=== PATIENT | female | born 1995 ===

== ENCOUNTER 2017-10-24 14:55 | Inpatient (IN) | payer SELFPAY ==
[2017-10-24] MEDS ORDERED: OLANZapine 5 MG TAB PO ONE (14:59)
--- NOTE | 2017-10-24 15:01 | EDPHY ---
H & P Source: Patient, Police, EMS Time Seen by Provider: 10/24/17 14:59 HPI/ROS: HPI CHIEF COMPLAINT: Acute psychosis, possible drug intoxication HISTORY OF PRESENT ILLNESS: This patient 22-year-old female she presents emergency room by EMS with police she is on M1 hold placed by Haleigh ELIAS, she presents emergency room psychotic. She has pressured speech and is rambling nonsensical words. Unable to obtain history from her. EMS reports that she may have done MDMA and LSD today. Possibly mushrooms. I am unable to obtain any history from her as she is floridly psychotic. Past Medical History: Unknown medical history Past Surgical History: Unknown surgical history Social History: Possible intoxication Family History: Unknown ROS REVIEW OF SYSTEMS: Unknown Exam Constitutional triage nursing summary reviewed, vital signs reviewed, awake/ alert. Eyes normal conjunctivae and sclera, EOMI, PERRLA. HENT normal inspection, atraumatic, moist mucus membranes, no epistaxis, neck supple/ no meningismus, no raccoon eyes. Respiratory clear to auscultation bilaterally, normal breath sounds, no respiratory distress, no wheezing. Cardiovascular rate normal, regular rhythm, no murmur, no edema, distal pulses normal. Gastrointestinal soft, non-tender, no rebound, no guarding, normal bowel sounds, no distension, no pulsatile mass. Genitourinary no CVA tenderness. Musculoskeletal no midline vertebral tenderness, full range of motion, no calf swelling, no tenderness of extremities, no meningismus, good pulses, neurovascularly intact. Skin pink, warm, & dry, no rash, skin atraumatic. Neurologic floridly psychotic, nonsensical pressured speech with nonsensical verbiage. Psychiatric acutely psychotic Heme/Lymph/Immune no lymphadenopathy. Differential Diagnosis: Includes but is not limited to in a particular order acute psychosis, acute drug intoxication,, underlying mental illness. Medical Decision Making: Plan for this patient 10 mg p.o. Zyprexa, IV establishment blood draw, drug screen, electrolytes and re-evaluate. Re-evaluation: CT scan head without contrast called to me by Dr. Blackman negative for acute bleed or abnormality. 2300: Patient here on M1 hold. Signed over to Dr. Sotelo, Reinier porsche ( Deshaun Bedoya) Constitutional: Initial Vital Signs Temperature (C) 36.8 C 10/24/17 15:27 Heart Rate 86 06/20/18 15:27 Respiratory Rate 15 10/24/17 15:27 Blood Pressure 150/90 H 10/24/17 15:27 O2 Sat (%) 97 10/24/17 15:27 O2 Delivery Mode Room Air Allergies/Adverse Reactions: No Known Allergies Allergy (Unverified 10/24/17 15:38) Home Medications: Medication Instructions Recorded NK [No Known Home Meds] 10/24/17 Medical Decision Making ED Course/Re-evaluation: 7:00 a.m.- Patient has been stable overnight. She is being evaluated by TLC. Dr. Hartman has taken over the case. (Maribel Sotelo) Other Provider: Care assumed at 7:00 a.m. With plan for psychiatric evaluation for acute psychosis. Personally examined at 7:20 a.m.; the patient is alert, at this time and is cooperative but distracted and pressured speech. She says she has been hospitalized prior for psychosis but can't really give me any details. 845: Discussed with Dr. Abraham Michel, plan to admit for psychiatric evaluation, history of bipolar disorder. 956: The patient will be transferred to [facility] for inpatient psychiatric hospital bed not available at this facility, in stable condition; accepting physician is Dr. Abraham Michel. EMTALA form completed. (Lalo Hartman) - Data Points Laboratory Results: Laboratory Results 10/24/17 14:55 10/24/17 14:55 Medications Given: Discontinued Medications Olanzapine (Olanzapine) 10 mg PO ONCE ONE Stop: 10/24/17 15:00 Last Admin: 10/24/17 15:39 Dose: 10 mg Departure - Departure Disposition: [facility] IP Clinical Impression: Acute psychosis Bipolar disorder Qualifiers: Active/Remission status: currently active Current bipolar episode type: manic Current episode severity: severe Psychotic features: with psychotic features Qualified Code(s): F31.2 - Bipolar disorder, current episode manic severe with psychotic features Condition: Good Instructions: Brief Psychotic Disorder (ED) Referrals: Valerie Almonte MD [[facility] Primary Care Provider] - As per Instructions
[2017-10-24 15:16] LABS: PLATELET COUNT 250 10^3/uL (150-400)
--- NOTE | 2017-10-25 11:00 | ASMTTCLDSP ---
[facility] Discharge Disposition Disposition: Answers: Admit Disposition Notes: Notes: In consultation with [facility] ED physician, Lalo Hartman MD and psychiatrist, Abraham Michel MD, both concurred that pt appears to meet 27-65 criteria requiring psychiatric hospitalization as the patient appears to be an imminent risk of harm to self due to a mental illness condition. The patient was given the 3n prohibited belongings list while in the ed. Was patient given the Answers: Yes Inpatient Behavioral Health Prohibited Belongings List while in the ED? For inpatient Abraham Michel MD admission, the following psychiatrist agreed to accept patient for admission to Behavioral Health ([facility]): Type of Hold: Answers: Involuntary Transportation Hold Hold initiated by: Answers: Police Date Signed: 10/25/2017 11:00 AM Electronically Signed By:Maria Teresa Nichols
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
[2017-10-25] MEDS ORDERED: NICOTINE POLACRILEX 2 MG GUM B PRN (13:12)
[2017-10-25] MEDS ORDERED: ACETAMINOPHEN 325 MG TAB PO PRN (13:12)
[2017-10-25] MEDS ORDERED: MAG HYDROX/AL HYDROX/SIMETH 30 ML UDCUP PO PRN (13:12)
[2017-10-25] MEDS ORDERED: MAGNESIUM HYDROXIDE 30 ML UDCUP PO PRN (13:12)
--- NOTE | 2017-10-25 13:40 | BCON ---
[f rep st] BEHAVIORAL HEALTH CONSULTATION INTERNAL MEDICINE CONSULTATION NOTE DATE OF CONSULTATION: 10/25/2017 REFERRING PHYSICIAN: Abraham Michel MD REASON FOR REFERRAL: Medical clearance for inpatient behavioral health stay. HISTORY OF PRESENT ILLNESS: This patient was brought to the emergency department on an M1 hold by police. She was psychotic in the emergency department with pressured speech and rambling nonsensical words. It was suspected that she might have used hallucinogens yesterday. She was evaluated by the mental health team and admitted for further psychiatric care. She is currently without any acute complaints. She reports recovering from an upper respiratory infection. She had a sore throat which she no longer has. PAST MEDICAL HISTORY: Bipolar disorder with several previous hospitalizations. PAST SURGICAL HISTORY: She denies any history of surgeries. MEDICATIONS: She was taking no medications. 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 She is living in her brother's apartment in [place]. She is a smoker and she has used multiple other drugs including alcohol and hallucinogens. FAMILY HISTORY: She reports that her mother uses an inhaler for asthma and that her father has diabetes. REVIEW OF SYSTEMS: She reports her URI symptoms are resolving. She is currently finishing her menstrual period. She reports that she has had weight loss which she says was intentional over several months and has weighed as much as 170 pounds in the past. She denies cough or dyspnea. She denies nausea, vomiting, constipation, or diarrhea. She denies dysuria. Otherwise, a 10- point review of systems is negative. PHYSICAL EXAM: VITAL SIGNS: Blood pressure is 118/75, heart rate is 81, respiratory rate is 18, oxygen saturation is 97% on room air, temperature is 36.7 degrees centigrade. Her weight is 54.4 kg for a body mass index of 20. GENERAL: This is a well-nourished, well-developed woman, dressed in a green hospital smock, cooperative and in no acute distress. HEENT: Extraocular movements are intact. Pupils are equal, round, reactive to light. Mucous membranes are moist. Dentition is in good condition. She has an uncrowded airway, Mallampati class 1. There is posterior oropharyngeal cobblestoning but no mucus visible. NECK: Supple. HEART: Regular rate and rhythm with no murmurs, rubs, or gallops. LUNGS: Clear to auscultation bilaterally. ABDOMEN : Benign. EXTREMITIES: There is no cyanosis, clubbing, or edema. NEUROLOGIC : Orientation was not checked. Cranial nerves 2-12 are grossly intact. There is no focal weakness. Sensation is intact to light touch and gait is within normal limits. LABORATORY STUDIES: CBC revealed a low MCV at 78.3. There was no anemia, however, otherwise, was overall within normal limits. Serum chemistry revealed a low carbon dioxide at 21. Calcium was slightly high at 10.5. Otherwise, renal function and electrolytes were normal. Beta hCG was negative for . Toxicology screen in the serum was negative for ethyl alcohol and in the urine was negative for any substances of abuse. Head CT showed sinusitis , but was otherwise without abnormalities. ASSESSMENT/RECOMMENDATIONS: 1. Mental health issues pending further evaluation and management per Psychiatry and the mental health team. 2. Weight loss. She reports that it is volitional, but I will order a TSH to ensure that she does not have hyperthyroidism which might also be contributing to her psychiatric state. 3. Upper respiratory infection is resolving. 4. Tobacco dependence syndrome. She was encouraged to stop smoking. 5. Microcytosis without anemia. Check iron panel. I see no medical contraindications to this patient's continued stay on the inpatient behavioral health unit or to any psychiatric medications or procedures. Thank you very much for including me in the care of this patient and please do not hesitate to contact me or the hospitalist service should there be need for further medical evaluation. /[id number]/MODL MTDD
[2017-10-25] MEDS ORDERED: OLANZapine DISINTEGR 5 MG TAB PO ONE (14:45)
--- NOTE | 2017-10-25 16:36 | BAPA ---
[f rep st] ADMISSION PSYCHIATRIC ASSESSMENT DATE OF SERVICE: 10/25/2017 CHIEF COMPLAINT: "Lack of sleep, my period and not eating enough. I have also been micro dosing psychedelics drugs." HISTORY OF PRESENT ILLNESS: This interviewer personally reviewed data from the ED note dated 10/24/2017. Pertinent information from this note, the patient presented to the ER psychotic. Patient presented with pressured speech and was rambling nonsensical words. ED was unable to obtain history from the patient. EMS reported to the ED that the patient may have done MDMA and LSD yesterday and possibly mushrooms. The ED physician was unable to obtain any history from the patient because she was "floridly psychotic." This interviewer personally reviewed TLC evaluation dated 10/25/2017, at 6:30 a.m. Per TLC evaluation, pertinent findings include the patient reported, "the voices are the best they have ever been. They can't control my mind. I do not let them. I have dealt with them for many years." Other pertinent findings from [facility] evaluation include the patient was reportedly found at a bookstore crying for several hours and stated that she was scared. The patient did admit to using drugs and had difficulty answering interview questions including simple questions like what is your name. The patient did report being off her medications. The patient reported she was unable to feed herself or sleep. Report also notable for the patient's bizarre behavior, including repeatedly folding her bedding. Her palms were clasped together at her waist and she would occasionally move her hands to her chest and squeeze them tightly. Eye contact was intermittent and the patient appeared to be attending to internal stimuli, reported 3 out of 10 when asked about auditory hallucinations. The patient was rocking back and forth, was irritable and labile. The patient was admitted involuntarily and is on an M1 hold due to being gravely disabled and she is hospitalized for safety crisis stabilization and medication evaluation. The patient describes circumstances that contributed to crisis that led to her current hospitalization as not being able to sleep. Reports only having total of about 5 hours of sleep over the last week. The patient reports she also uses marijuana daily, reports using LSD/acid on Sunday and also smoking marijuana heavily on Sunday. The patient reports she recently started micro dosing psychedelics drugs, notably micro dosing mushrooms. The patient states she has never micro dosed psychedelics medications in the past and does state that she has been acting strangely, feeling "weird" since starting to use these psychedelics drugs. The patient reports past mental illness as psychosis and anxiety. The patient reports she has also been depressed in the past. The patient describes abuse history as none. The patient describes currently feeling anxious. The patient denies other psychiatric symptoms, including symptoms of depression, masood, ADHD, OCD, PTSD. Denies auditory or visual hallucinations and delusions and denies any other symptoms of psychiatric disorder. The patient describes current psychiatric symptoms are impacting managing her day-to-day life, described as having some difficulty taking care of household responsibilities over the last several weeks. The patient reports she recently got fired from her job and patient reports she got fired from her job because "my employers thought I was acting weird." The patient reports she has been socializing, hanging out with friends , states she gets along with her family okay. The patient reports she is currently not taking any courses and is not in any type of college or other education programs. The patient reports her hobbies as dancing. States that she is generally not satisfied with her life at the current moment. The patient denies current suicidal ideation and reports protective factors or reasons to live as her boyfriend. The patient reports she does have future goals as attending of [employer] or going to massage school. Also states that she has thought about becoming an RN. The patient reports her main support network as her mother. The patient denies current homicidal ideation. The patient denies current self-injurious ideation. The patient reports she has not been seen by a psychiatrist for over 2 years. However, she appears to be somewhat confused or ambivalent about how long ago it has been since she has been seen by a psychiatrist. The patient reports she currently does not see a therapist. PAST PSYCHIATRIC HISTORY: The patient describes the following psychiatric history: The patient reports she has been diagnosed with psychosis and anxiety in the past. The patient reports that she has taken Seroquel and Zyprexa in the past. The patient reports that whatever medication she was given in the ER yesterday was beneficial. Upon reading the ED note, the patient was given Zyprexa in the emergency department. This is discussed with the patient and she agrees to continue Zyprexa. The patient reports she has a history of psychiatric hospitalizations x2 and reports both of these hospitalizations were while she was in [place]. The patient is unable to provide specific details or provide any certain triggers that led to these hospitalizations at this time. The patient denies any history of withdrawal from drugs or alcohol. The patient reports she attempted suicide 2 years ago by carbon monoxide poisoning. The patient denies any history of self-injurious behavior. ALLERGIES: No known drug allergies. CURRENT MEDICATIONS: The patient reports she currently does not take any psychotropic medications. PAST MEDICAL HISTORY: The patient describes the following: The patient reports she has no reason to believe she is . test upon admission was negative. The patient denies any history of neurologic disorders including organic brain disease. Denies any history of traumatic brain injuries or concussions. The patient denies any history of major illnesses or major hospitalizations. SOCIAL HISTORY: The patient describes the following social history: The patient reports she was born in [place]. States her parents were not at time of her . The patient reports she was raised the majority of her life by her mother in [place]. The patient reports she currently lives in [place], [place] with her older brother. The patient describes meeting all her developmental milestones growing up and and denies any learning delays or difficulties. The patient describes her sexual orientation as heterosexual and reports she is currently not in a relationship. The patient states she has never been and has no children. She patient reports she is currently unemployed. Describes her highest level of education as high school. Denies any history of duty and reports her hindu or spiritual practice as Che[employer]ism. When asked about whether or not the patient is facing any legal charges or legal issues, the patient states "I'm not really sure." SUBSTANCE USE HISTORY: The patient reports she drinks alcohol about twice a week and when I ask how much she drinks per occasion, the patient reports she drinks until she feels really good and gets drunk. The patient reports she smokes about a half a pack of cigarettes per day and uses marijuana on a daily basis. The patient reports she has never used meth and has tried cocaine 2 or 3 times a few months ago while dating a man who she thinks may have been a drug dealer or used cocaine or crack. She also reports she has used crack a few times a few months ago. The patient denies ever using heroin. Reports she has abused prescription medications in the past including Adderall during high school. The patient reports she recently started micro dosing mushrooms. States she started using this hallucinogen a few weeks ago and has been micro dosing on a daily basis over the last 2 weeks. FAMILY PSYCHIATRIC HISTORY: The patient describes the following family psychiatric history: The patient reports no one in her family suffers from a mental illness. Reports her brother has attempted suicide and reports no one in her family abuses drugs or alcohol. ADMISSION LABS: CBC revealed a low MCV at 78.3. There was no anemia, however, otherwise was overall within normal limits. Serum chemistry revealed a low carbon dioxide at 21, calcium was slightly high at 10.5, otherwise renal function and electrolytes were normal. Beta HCG was negative for . Toxicology screen in the serum was negative for ethyl alcohol and in the urine was negative for any substances of abuse. MENTAL STATUS EXAM: The patient is an undernourished female looking stated chronological age. Attire is appropriate. Dress is casual and for the most part, neat. The patient does have a sweatshirt on that is torn around the neck. Grooming status is appropriate and somewhat disheveled. Ambulation is independent. Gait is normal and coordinated. The patient's posture is normal and relaxed. Eye contact is little, at times avoided. Motor activity is appropriate with purposeful, organized, coordinated movements with no involuntary movements noted. Attitude is cooperative and at times guarded. The patient appears distractible and relates fairly well to this interviewer. Language production is spontaneous. Rate is at times pressured. Latency of response is adequate with variable tone, appropriate volume and amount at times is hyper talkative. Articulation is clear with no evidencing of speech impairments. Patient reports mood as euthymic with adequately arranged and congruent affect. The patient's thought process is nonlinear and illogical. No loose associations noted. There is some evidence of a tangential thought. No thought blocking noted. No concrete thinking and no other signs of formal thought disorder. The patient does not report suicidal, homicidal thoughts, ideas, or plans. Patient denies auditory or visual hallucinations. The patient denies delusions. The patient does not appear to be attending to internal stimuli at this time. The patient's orientation is full to person, full to place, full to time, and partial to situation. Patient's attention and concentration are fair. Insight and judgment are poor. There is no evidence of gross cognitive dysfunction at any point during the interview. DIAGNOSIS: Unspecified psychosis, rule out substance-induced psychosis due to recent use of hallucinogens, rule out bipolar disorder with psychotic features; cannabis use disorder, severe; alcohol use disorder, moderate; hallucinogen use disorder, severe. FORMULATION: This is a 22-year-old female, single, unemployed, living in [place], [place] with her older brother who presents to the hospital involuntarily due to being gravely disabled and is currently on an M1 hold. The patient requires continued inpatient care because of her current mood instability and recent crisis. The patient presents of problems of psychosis and mood instability that have been steadily increasing over the past several weeks. The patient's life has been affected by these problems including the crisis that led to this hospitalization. The onset of symptoms was preceded by patient's use of psychedelics drugs, including the patient's report of starting to use micro dosing of mushrooms approximately 2 weeks ago and this is about the same time that the patient reports these symptoms started. It is unclear at this time if the patient has any underlying psychiatric disorder. Based on the patient's history and current presentation, her current diagnosis is unspecified psychosis. The patient has a high safety risk due to current psychosis and mood instability, recent crisis and history of hallucinogens and cannabis use. Protective factors while hospitalized include ongoing safety checks, active involvement in treatment, and support from our treatment team. Patient could benefit from inpatient hospitalization for safety crisis stabilization and medication evaluation. PLAN OF TREATMENT: 1. Psychotropic medications: After reviewing options and risks and benefits, the patient agrees to Zyprexa Zydis 5 mg now and Zyprexa Zydis 10 mg p.o. at bedtime for psychosis and mood instability. 2. Labs: A1c, fasting lipid panel and liver function tests. 3. Therapy: milieu and group 4. Further investigation including gathering information from patients relatives and review of past case records 5. Continued evaluation and monitoring will be ongoing during the course of patients inpatient hospitalization to inform treatment, to determine if adjustments in medication regimen may benefit patients symptoms, and for discharge planning 6. Safety plan and follow-up outpatient appointments to be established prior to discharge 7. Confer with inpatient treatment team regarding initial treatment plan 8. Review informed consent and recommendations for psychotropic medication treatment listed below now, during the course of hospitalization, and during discharge interview PSYCHOTROPIC MEDICATION TREATMENT INFORMED CONSENT and RECOMMENDATIONS: Review nature of condition, diagnosis, and prognosis. Review nature and purpose of psychotropic medication treatment. Review type of psychotropic medications being ordered. Review risk and benefits of psychotropic medication treatment. Review probable length of time will need to take medications. Review risk and benefits of not undergoing psychotropic medication treatment. Review alternative treatments to psychotropic medications. Review psychotropic medications contraindications, drug-drug interactions, side effects, and importance of reporting any side effects to a psychiatric provider or nurse during inpatient hospitalization, and upon discharge to patients psychiatric outpatient provider, primary care provider, or other health patient care provider. Review importance of asking a nurse, psychiatric provider, or primary care provider any questions or problems concerning the psychotropic medications. Verifty patient understands the information that has been provided, and understands, accepts, and agrees to psychotropic medications. Review patients safety plan and importance of patient to communicate to staff while hospitalized if patient is ever a danger to self/others, or unable to care for self, and upon discharge, the importance for patient to contact [facility] or [facility], or go to the nearest emergency room, if patient is ever a danger to self/others, or unable to care for self. Recommend that upon discharge patient establish medication management treatment with a psychiatric provider, establishes routine therapy appointments, and follow-up with primary care provider. Verify patient understands and agrees to these recommendations. ESTIMATED LENGTH OF STAY: 1-3 days. /[id number]/MODL MTDD
[2017-10-25] MEDS ORDERED: OLANZapine DISINTEGR 10 MG TAB PO SCH (21:00)
--- NOTE | 2017-10-26 10:31 | PDMN ---
Medical Necessity Medical necessity: MCG: [id number], Other psychotic disorders, adult: inpatient care. 3 days. Unspecified psychosis, r/o substance induced psychosis, r/o bipoloar disorder with psychotic features. M1 hold, gravely disabled. Hx of attempted suicide.
--- NOTE | 2017-10-26 13:16 | SOAPPROG ---
SOAP Progress Note Assessment/Plan: Assessment: Substance-induced psychosis. R/O bipolar I disorder. No improvement noted. ( see subjective/objective note). Patient could benefit from continued inpatient hospitalization for crisis stabilization, safety, and medication evaluation. Plan: Review psychotropic medication treatment informed consent and recommendations. After reviewing risk and benefits, patient agrees to continue medications with the following changes. Medication changes include change Zyprexa 10 mg HS to BID. No other medication changes at this time as more time is needed to determine ongoing tolerability and efficacy. Plan is to continue to observe patient for response and side effects from medications, and ongoing monitoring and evaluation. Next steps are for patient to meet with critical care technician to plan a safe discharge plan and establish outpatient services for ongoing treatment. Consider discharge next week if patient is in stable condition, safe, and has a safe discharge plan. PSYCHOTROPIC MEDICATION TREATMENT INFORMED CONSENT and RECOMMENDATIONS: Review nature of condition, diagnosis, and prognosis. Review nature and purpose of psychotropic medication treatment. Review type of psychotropic medications being ordered. Review risk and benefits of psychotropic medication treatment. Review probable length of time patient will need to take medications. Review risk and benefits of not undergoing psychotropic medication treatment. Review alternative treatments to psychotropic medications. Review psychotropic medications contraindications, drug-drug interactions, side effects, and importance of reporting any side effects to a psychiatric provider or nurse during inpatient hospitalization, and upon discharge to patients psychiatric outpatient provider, primary care provider, or other health lawn care worker. Review importance of asking a nurse, psychiatric provider, or primary care provider any questions or problems concerning the psychotropic medications. Verify patient understands the information that has been provided, and understands, accepts, and agrees to psychotropic medications. Review patients safety plan and importance of patient to report to staff while hospitalized if patient is ever a danger to self/others, or unable to care for self, and upon discharge, the importance for patient to contact [facility] or [facility], or go to the nearest emergency room, if patient is ever a danger to self/others, or unable to care for self. Recommend that upon discharge patient establish medication management treatment with a psychiatric provider, establishes routine therapy appointments, and follow-up with primary care provider. Verify patient understands and agrees to these recommendations. 10/26/17 13:18 Subjective: Following up with patient for evaluation of psychosis and safety. Patient reports she thinks she may be coming down off using hallucinogens over the last two weeks. States, "I like drugs though." CC: "A little anxious." Patient reports she is taking medications as prescribed and tolerating with no report of side effects. Patient reports her appetite is all over the place, states she is not sure if she slept last night, reports her mood as unease. Objective: Vital Signs Temp Pulse Resp BP Pulse Ox 36.7 C 60 12 107/71 96 10/26/17 06:00 10/26/17 06:00 10/26/17 06:00 10/26/17 06:00 10/26/17 06:00 Consulted with treatment team staff for update on patients progress in treatment. Nurses report patient slept 8.5 hours last night, is taking medications as prescribed with no report of side effects. Nurses reports patient continues bizarre behavior and presents anxious. The patient is an undernourished, female, looking stated chronological age. Attire is appropriate, dress is hospital garb, and is neat and clean. Grooming status is appropriate. Ambulation is independent. Gait is normal and coordinated. Posture is normal and relaxed. Eye contact is appropriate. Motor activity is underactive with no involuntary movements. Attitude is cooperative. Patient relates well to this interviewer. Language production is spontaneous. Rate is hesitant, slowed. Latency of response is prolonged, with low volume. Patient reports mood as okay with constricted and incongruent and inappropriate affect. Patients thought process: loose associations, tangential. Patient does not report suicidal/homicidal thoughts, ideas, or plans. Patient denies auditory, visual hallucinations. Patient denies delusions. Patient does not appear to be attending to internal stimuli. Patient is oriented to person, place, time; is not oriented to situation. Attention and concentration are poor. Insight is poor. Judgment is impaired. Patient does not report undesirable side effects from the medications. COGNITIVE FUNCTION: Retention / Recall: repeat back these numbers: 5 1 5 0 3 / 9 6 8 3 6 4 2 - without difficulty Abstractions: How is an airplane similar to a bird? - they can fly Memory: Remember these 3 items, ask to repeat back later in the evaluation: Pin , Car, Duck. Judgement: If you were in a restaurant and heard a fire alarm go off, what would you do? Patient answers: Pin, Car, Duck Orientation: Patient states her situation being here as: Main reason here is she was running herself to the ground, and that she shouldnt have sex before marriage. Patient states micro-dosing hallucinogens for sure is reason she is here also. - Time Spent With Patient Time Spent With Patient: 30 minutes, met with patient individually. 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
--- NOTE | 2017-10-26 13:42 | ASMTBHMTP ---
Master Treatment Plan Master Treatment Plan Answers: Mood Instability with for: Psychosis Date: 10/25/2017 Diagnosis on Admission: Bipolar I Disorder, Severe (F31.13) Expected length of stay: 3-5 days Reason for admission: Notes: Client is a 22 yoa female brought to [facility] via EMS on an M1-Hold placed by police after patient was "found at a bookstore crying for several hours." Per patient, she reported drug use; however, was not able to list any substances. Additionally, ED toxicology screen ruled out any presence of substances, etc.* Moreover, client was observed to be responding to "internal stimuli." Client's current out-patient treatment team is in [place]; she admits being seen roughly nine months ago. Furthermore, client's history includes two past hospitalizations in the last five years; both in [place] where she is originally from. Finally, client admits to attempting suicide on a few years ago in which she started her mother's car in the garage to from carbon monoxide poisoning. She was found at the time by mother and rushed to the ED. See T[facility] report for further or additional information. Patient's stated presenting problems: Notes: "[My] lack of sleep and anger at my job because they were untruthful when they fired me." Patient's goals for treatment: Notes: "To drink water, have my acne clear up, meditate, and "hopefully discharge when my hold is up." Patient's strengths: Notes: "I have the ability to focus, I'm nice, honest and have a great imagination." Identify supports outside of hospital: Notes: "My mother mostly and limited friends" Discharge criteria: Notes: Patient will demonstrate more stable mood by discharge. Initial disposition plan/considerations: Notes: "[I] would like to return home to [place] (fly home) for 'awhile,' because I still want to see this bonnie I been dating "Shari Vargas,' who will be back in the fall for school at [employer]." Master Treatment Plan Required Signatures Psychiatrist signature: Answers: WILLIE YipP: RN on-shift signature: Answers: RN: Patient signature: Answers: Patient: Date Signed: 10/26/2017 01:41 PM Electronically Signed By:Jay Franco
--- NOTE | 2017-10-26 14:11 | ASMTBHDC ---
Notes Note: Notes: CC speaks briefly to client during check in. Client suggests she is "doing ok," however, CC notices that her body language is very anxious and nervous Client currently rates her anxiety 4/10, depression 3/10; while denying any feelings of S/I/HI. She does note to both "seeing and hearing things that are not there....it's hard to explain, but they are familiar to me and only happens when I am exposed to new enviornments." Client did admit to "taking shrooms (hallucinogenic mushrooms)," prior to her admission. Client signed MTP and DUANE for MOC at ([phone]). CC calls MOC at number listed above; MOC confirmed BOC (Luciano [facility]-[phone]). MOC confirmed that client was taking meds which helped her including therapy. MOC confirmed that client is usually sensitive towards medications however, has done well on buspirone 15mg BID. MOC suggests that client can come back home [place] and noted that "we need to get her brother involved in that process of getting back to [place]." MOC noted that "she took the buspirone for years and fine, then [they] tried Doxepin, [place] Carbonate and Seroquel. MOC noted, "she is welcome to come anytime, I would love to have her home, her brother will NEED to be involved with discharge plan/return home," due to logistical reasons. Weekend CC to try to have a family meeting with via phone with client & MOC/brother and CC to develop a concrete discharge plan. Date Signed: 10/26/2017 02:10 PM Electronically Signed By:Jay Franco
[2017-10-26] MEDS: OLANZapine DISINTEGR 10 MG TAB PO SCH (20:28)
[2017-10-27] MEDS: OLANZapine DISINTEGR 10 MG TAB PO SCH ×2 (08:36→20:36)
[2017-10-27] MEDS ORDERED: SODIUM CL NASAL 45 ML BTL EACHNARE PRN (13:00)
--- NOTE | 2017-10-27 14:07 | ASMTBHDC ---
Notes Note: Notes: Pt. reports feeling "good". Pt. stated she "slept like a rock", adding she hasn't been dreaming. Pt. stated she is eating well, and "munching more". Pt. reports no issues with her medications. Pt. reports attending groups. Pt. stated her main issue is her acne. Pt. denied SI, HI, and AVH. Pt. stated she has some paranoia about "not getting out of here". Pt. stated she doesn't have AVH, but has "negative thoughts" about bad things happening. Pt. presents as social, a bit guarded, with good eye contact, and lacking insight into why she is in the hospital. Pt. was observed dancing in the mckeon outside of a male peer pt's door while listening to peer pt's radio. Date Signed: 10/27/2017 02:06 PM Electronically Signed By:Alisia Bazzi
--- NOTE | 2017-10-27 14:13 | ASMTBHFAM ---
Notes Note: Notes: CC spoke with pt's MOC Chelo Zhao ([phone]). MOC stated pt. seems easily agitated when talking to her on the phone, adding pt. has hung up on her several times. MOC stated prior to admission, pt. was making "weird" postings on social media and several family members and friends reached out to MOC out of concern for pt. MOC stated pt. "looks anorexic" in her photos online. MOC was concerned about pt's weight. MOC stated pt's father "triggers stuff in her", adding father is very controlling on pt. MOC stated pt. often "fixates on guys". MOC stated after pt's previous breakdown, she began acting more "childlike". MOC stated she is willing to fly pt. to [place], adding pt's BOC (Luciano) will need to help with this. MOC stated about pt., "more pill you give, the less she will take." [facility] is willing to have a family meeting via phone with pt., MOC, JB, and CC on Sunday10/28/17 at 12:45pm, if patient is willing. Date Signed: 10/27/2017 02:11 PM Electronically Signed By:Alisia Bazzi
--- NOTE | 2017-10-27 16:38 | SOAPPROG ---
SOAP Progress Note Assessment/Plan: Assessment: Per Jonny Solano's note: Substance-induced psychosis. R/O bipolar I disorder. No improvement noted. ( see subjective/objective note). Patient could benefit from continued inpatient hospitalization for crisis stabilization, safety, and medication evaluation. Plan: 10/27/17 16:36 1. Patient requests saline nasal spray. 2. Compliant with meds. 3. Patient still has delusions and bizarre thoughts. 4. Place on [facility]. Subjective: Met with patient, reviewed chart and d/w staff. Patient still has bizarre thoughts. She told CC that she worried she could push a star into a collision with earth, but didn't explain how she thought this was possible. She denied any SI/HI. Objective: Vital Signs Temp Pulse Resp BP Pulse Ox 36.5 C 90 16 117/68 99 10/27/17 06:00 10/27/17 06:00 10/27/17 06:00 10/27/17 06:00 10/27/17 06:00 MSE: Affect: Euthymic Mood: "OK" TP: Disorganized, illogical TC: Denies AH/VH , delusional Insight/Judgment: Poor - Time Spent With Patient Time Spent With Patient: 20" - Pending Discharge Pending Discharge Within 24 Hours: No Pending Discharge Within 48 Hours: No ICD10 Worksheet Patient Problems: Problems Problem Status Onset Acute psychosis Acute Alcohol use disorder, mild, in controlled environment Acute Bipolar disorder Acute Cannabis use disorder, severe, in controlled environment Acute 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
[2017-10-28] MEDS: OLANZapine DISINTEGR 10 MG TAB PO SCH ×2 (08:21→20:46)
--- NOTE | 2017-10-28 14:40 | ASMTBHDC ---
Notes Note: Notes: Pt. reports feeling "rested". Pt. stated she "seem to never stop being hungry". Pt. stated she had a brief suicidal thought this morning, but "checked myself" and has no current SI. Pt. denied HI. When asked about AVH, pt. stated her "imagination just gets a little wild". Pt. discussed how if she truly put the effort in she could make things happen, such as making a star fall to the earth. Pt. reports paranoia around how she has "always been nervous". Pt. discussed what brought her into the hospital and stated she is feeling better, adding "feel sad today, hard to stay grateful while have to be here". Pt. stated she is upset to be on a STC. Date Signed: 10/28/2017 02:40 PM Electronically Signed By:Alisia Bazzi
--- NOTE | 2017-10-28 14:48 | ASMTBHFAM ---
Notes Note: Notes: CC met with pt., BOC and MOC via phone. Pt. stated she wants to return home to [place], to visit for a week or two and then return to [place]. Pt. stated she would like to go to her follow-up appointments and then travel to [place]. MOC shared they are in the process of moving out at the end of November. MOC asked about group homes for pt., which pt. denied any interest in. Pt. stated she has a fear of flying and would prefer to take a bus to [place], family agreed with this plan. MOC stated BOC will be driving to [place] at the end of the summer for a family visit, it is unclear if pt. will be joining. MOC stated pt. will have to take her medications when visiting. Pt. expressed her frustration with being on a STC in meeting. Family agreed for BOC (Luciano) to be the point of burial needs salesperson for pt's hospitalization MOC called CC later stating there were a few things she did not want to bring up in family meeting. MOC stated she thinks pt. needs anger management counseling, adding pt. has yelled at her, pinched her, and kicked her brother's dog when she gets angry. MOC stated the family doesn't trust the pt. when she is cooking, adding pt. has burned a few pans. MOC asked about pt. getting assistance with finding a job, and possibly living in a supervised apartment. MOC stated pt. has only been able to hold a job for a month or two at a time. Date Signed: 10/28/2017 02:46 PM Electronically Signed By:Alisia Bazzi
--- NOTE | 2017-10-28 15:53 | SOAPPROG ---
SOAP Progress Note Assessment/Plan: Assessment: Per Jonny Solano's note: Substance-induced psychosis. R/O bipolar I disorder. No improvement noted. ( see subjective/objective note). Patient could benefit from continued inpatient hospitalization for crisis stabilization, safety, and medication evaluation. Plan: 10/27/17 16:36 1. Patient requests saline nasal spray. 2. Compliant with meds. 3. Patient still has delusions and bizarre thoughts. 4. Place on STC. 10/28/17 15:48 1. CC to have family meeting today with [facility] and BOC. 2. [facility] wants patient to return to live with her in [place]. 3. Patient has been inappropriate with male peers on unit, currently on ISB restriction. 4. [facility] reports 2 prior psych hospitalizations in [place] 3-5 years ago. 5. On STC. Subjective: Met with patient, reviewed chart and d/w staff. Patient doesn't want to be here. She was upset about being placed on STC yesterday. [facility] told CC that patient was admitted to psych hospital x 2 in [place] as teenager. [facility] also reports that patient was on [place] in past, but didn't like it. [facility] also told CC that Seroquel caused weight gain for patient and made her "like a zombie." Per [facility], patient has also taken Temazepam and Buspar for anxiety and sleep. CC will request DUANE to obtain medical records from prior hospitals. Patient denies any SI/HI and denies any AH/VH. Objective: Vital Signs Temp Pulse Resp BP Pulse Ox 37.0 C 124 H 18 116/67 100 10/28/17 06:00 10/28/17 06:00 10/28/17 06:00 10/28/17 06:00 10/28/17 06:00 MSE: Affect: Upset about being in hospital Mood: "OK" TP: Disorganized TC: Denies SI/HI, no AH/VH Insight/Judgment: Poor - Time Spent With Patient Time Spent With Patient: 15" - Pending Discharge Pending Discharge Within 24 Hours: No Pending Discharge Within 48 Hours: No ICD10 Worksheet Patient Problems: Problems Problem Status Onset Acute psychosis Acute Alcohol use disorder, mild, in controlled environment Acute Bipolar disorder Acute Cannabis use disorder, severe, in controlled environment Acute 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
[2017-10-29] MEDS: OLANZapine DISINTEGR 10 MG TAB PO SCH ×2 (08:43→21:29)
--- NOTE | 2017-10-29 11:09 | SOAPPROG ---
SOAP Progress Note Assessment/Plan: Assessment: Substance-induced psychosis. R/O bipolar I disorder. Slight improvement noted. (see subjective/objective note). Patient starting to show improvement, and requires continued inpatient level of care to reach level of stability to be able to be safely discharged. Patient could benefit from continued inpatient hospitalization for crisis stabilization, safety, and medication evaluation. Plan: Review psychotropic medication treatment informed consent and recommendations. After reviewing risk and benefits, patient agrees to continue medications with the following changes. Medication changes include starting trial of Gabapentin 300 mg po TID for anxiety. No other medication changes at this time as more time is needed to determine ongoing tolerability and efficacy. Plan is to continue to observe patient for response and side effects from medications, and ongoing monitoring and evaluation. Next steps are for patient to meet with child care director to plan a safe discharge plan and establish outpatient services for ongoing treatment. Consider discharge Sunday if patient is in stable condition, safe, and has a safe discharge plan. PSYCHOTROPIC MEDICATION TREATMENT INFORMED CONSENT and RECOMMENDATIONS: Review nature of condition, diagnosis, and prognosis. Review nature and purpose of psychotropic medication treatment. Review type of psychotropic medications being ordered. Review risk and benefits of psychotropic medication treatment. Review probable length of time patient will need to take medications. Review risk and benefits of not undergoing psychotropic medication treatment. Review alternative treatments to psychotropic medications. Review psychotropic medications contraindications, drug-drug interactions, side effects, and importance of reporting any side effects to a psychiatric provider or nurse during inpatient hospitalization, and upon discharge to patients psychiatric outpatient provider, primary care provider, or other health child care group leader. Review importance of asking a nurse, psychiatric provider, or primary care provider any questions or problems concerning the psychotropic medications. Verify patient understands the information that has been provided, and understands, accepts, and agrees to psychotropic medications. Review patients safety plan and importance of patient to report to staff while hospitalized if patient is ever a danger to self/others, or unable to care for self, and upon discharge, the importance for patient to contact [facility] or [facility], or go to the nearest emergency room, if patient is ever a danger to self/others, or unable to care for self. Recommend that upon discharge patient establish medication management treatment with a psychiatric provider, establishes routine therapy appointments, and follow-up with primary care provider. Verify patient understands and agrees to these recommendations. 10/29/17 11:07 Subjective: Following up with patient for evaluation of psychosis and safety. Patient reports, "I think it was the drugs, when I started micro-dosing likely led to me being here." Patient reports she is taking medications as prescribed and tolerating with no report of side effects. Patient reports her appetite has improved, and she is eating all meals. Patient reports symptoms of anxiety, and states she has used illicit drugs to relieve anxiety. Patient agrees to trial of Gabapentin for 300 mg po TID for anxiety. Patient reports she plans to return to her brothers house when she discharges. Patient plans to buy a car and Uber with it and then go to school at [employer]. Objective: Vital Signs Temp Pulse Resp BP Pulse Ox 36.5 C 90 18 111/71 100 10/29/17 06:00 10/29/17 06:00 10/29/17 06:00 10/29/17 06:00 10/29/17 06:00 Consulted with treatment team staff for update on patients progress in treatment. Nurses report patient slept 8.5 hours last night, is taking medications as prescribed with no report of side effects. Nurses report patient is more organized, linear, logical, and less agitated; improved sleep. The patient is an undernourished, female, looking stated chronological age. Attire is appropriate, dress is hospital garb, and is neat and clean. Grooming status is appropriate. Ambulation is independent. Gait is normal and coordinated. Posture is normal and relaxed. Eye contact is appropriate. Motor activity is appropriate. Attitude is cooperative. Patient relates well to this interviewer. Language production is spontaneous. R/R/V normal. Patient reports mood as good with appropriate affect. Patients thought process is linear and logical. Patient denies suicidal/homicidal thoughts, ideas, or plans. Patient denies auditory, visual hallucinations. Patient denies delusions. Patient does not appear to be attending to internal stimuli. Patient is oriented to person, place, time, and situation. Attention and concentration are adequate. Insight is adequate. Judgment is improved. Patient does not report undesirable side effects from the medications. - Time Spent With Patient Time Spent With Patient: 20 minutes, met with patient individually. 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
[2017-10-29] MEDS: GABAPENTIN 300 MG CAP PO SCH ×3 (11:11→21:29)
--- NOTE | 2017-10-29 11:20 | ASMTBHDC ---
Notes Note: Notes: CC was able to communicate with [facility] due to client living in [facility]. CC sent physical fax due to not finding provider in [employer] (learning). Hospital liaison called back and noted that client will have to do be seen at the walk-in clinic listed below as well as send any discharge clinical to fax number ([phone]). Client signed DUANE and placed in chart. Follow up with: [facility]- Walk-in clinic [address] [place] [id number] Intake Appt: through Walk-in clinic Sunday to Sunday 8am to 3pm, first come first served Please arrive at 8am Date Signed: 10/29/2017 11:19 AM Electronically Signed By:Jay Franco
[2017-10-30] MEDS: GABAPENTIN 300 MG CAP PO SCH ×3 (08:17→21:16)
[2017-10-30] MEDS: OLANZapine DISINTEGR 10 MG TAB PO SCH ×2 (08:17→21:16)
--- NOTE | 2017-10-30 10:35 | SOAPPROG ---
SOAP Progress Note Assessment/Plan: Assessment: Substance-induced psychosis. Continues to show improvement. (see subjective/ objective note). Patient continues to show improvement, and requires continued inpatient level of care to reach level of stability to be able to be safely discharged. Patient could benefit from continued inpatient hospitalization for crisis stabilization, safety, and medication evaluation. Plan: Review psychotropic medication treatment informed consent and recommendations. After reviewing risk and benefits, patient agrees to continue current medications. No other medication changes at this time as more time is needed to determine ongoing tolerability and efficacy. Plan is to continue to observe patient for response and side effects from medications, and ongoing monitoring and evaluation. Next steps are for patient to meet with complex care nurse practitioner to plan a safe discharge plan and establish outpatient services for ongoing treatment. Consider discharge Sunday (tomorrow) if patient is in stable condition, safe , and has a safe discharge plan. PSYCHOTROPIC MEDICATION TREATMENT INFORMED CONSENT and RECOMMENDATIONS: Review nature of condition, diagnosis, and prognosis. Review nature and purpose of psychotropic medication treatment. Review type of psychotropic medications being ordered. Review risk and benefits of psychotropic medication treatment. Review probable length of time patient will need to take medications. Review risk and benefits of not undergoing psychotropic medication treatment. Review alternative treatments to psychotropic medications. Review psychotropic medications contraindications, drug-drug interactions, side effects, and importance of reporting any side effects to a psychiatric provider or nurse during inpatient hospitalization, and upon discharge to patients psychiatric outpatient provider, primary care provider, or other health assurance services manager health care. Review importance of asking a nurse, psychiatric provider, or primary care provider any questions or problems concerning the psychotropic medications. Verify patient understands the information that has been provided, and understands, accepts, and agrees to psychotropic medications. Review patients safety plan and importance of patient to report to staff while hospitalized if patient is ever a danger to self/others, or unable to care for self, and upon discharge, the importance for patient to contact [facility] or [facility], or go to the nearest emergency room, if patient is ever a danger to self/others, or unable to care for self. Recommend that upon discharge patient establish medication management treatment with a psychiatric provider, establishes routine therapy appointments, and follow-up with primary care provider. Verify patient understands and agrees to these recommendations. 10/30/17 10:34 Subjective: Following up with patient for evaluation of psychosis and safety. Patient reports, "I feel really good, my goal today is to just let go, and engage more in treatment and in the moment." Patient reports she is taking medications as prescribed and tolerating with no report of side effects. Patient reports her appetite has improved, and she is eating all meals. Patient reports good response from Gabapentin for anxiety. Patient reports she plans to return to her brothers house when she discharges. Patient plans to contact employer to see if she still has a job, and if not, she will move forward to another job. Patient plans to buy a car when she has enough money saved, and "Uber" with it. Patient then plans go to school at [employer]. Objective: Vital Signs Temp Pulse Resp BP Pulse Ox 36.6 C 92 16 131/73 H 100 10/30/17 06:00 10/30/17 06:00 10/30/17 06:00 10/30/17 06:00 10/30/17 06:00 Consulted with treatment team staff for update on patients progress in treatment. Nurses report patient slept 9 hours last night, is taking medications as prescribed with no report of side effects. Nurses report patient is more organized, linear, logical, and less agitated; improved sleep. The patient is an undernourished, female, looking stated chronological age. Attire is appropriate, dress is hospital garb, and is neat and clean. Grooming status is appropriate. Ambulation is independent. Gait is normal and coordinated. Posture is normal and relaxed. Eye contact is appropriate. Motor activity is appropriate. Attitude is cooperative. Patient relates well to this interviewer. Language production is spontaneous. R/R/V normal. Patient reports mood as good with appropriate affect. Patients thought process is linear and logical. Patient denies suicidal/homicidal thoughts, ideas, or plans. Patient denies auditory, visual hallucinations. Patient denies delusions. Patient does not appear to be attending to internal stimuli. Patient is oriented to person, place, time, and situation. Attention and concentration are adequate. Insight is adequate. Judgment is improved. Patient does not report undesirable side effects from the medications. - Time Spent With Patient Time Spent With Patient: 20 minutes, met with patient individually. 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
--- NOTE | 2017-10-30 11:20 | ASMTBHDC ---
Notes Note: Notes: CC spoke to brother Luciano at ; who noted, "I can be there tomorrow at 1pm for brief family meeting and then take her home, for discharge." Client scheduled to discharge tomorrow after family meeting with brother; in to his care and follow up with [facility], (check discharge checklist). Client noted, "going to stay with brother for a few days, maybe visit [place] for a week or two with intention of staying in the area." Confirm with provider. Date Signed: 10/30/2017 11:20 AM Electronically Signed By:Jay Franco
[2017-10-31 06:24] VITALS: BP 114/72
[2017-10-31] MEDS: GABAPENTIN 300 MG CAP PO SCH (08:25)
[2017-10-31] MEDS: OLANZapine DISINTEGR 10 MG TAB PO SCH (08:25)
--- NOTE | 2017-10-31 11:29 | ASMTBHDC ---
Notes Note: Notes: CC went over discharge plans with MOC and brother in detail; providing them the name, address and phone number of client's follow up plan: [facility] for a walk-in appts, etc. [facility] thanked this technical report writer for his help. CC confirmed client's discharge summary is correct. BOC will be here around 1pm to meet briefly then client to discharge into his care. Date Signed: 10/31/2017 11:29 AM Electronically Signed By:Jay Franco
--- NOTE | 2017-10-31 15:58 | BDS ---
[f rep st] BEHAVIORAL HEALTH DISCHARGE SUMMARY REASON FOR ADMISSION: Pertinent information from the ED note dated 10/24/2017, the patient presented to the emergency room by EMS with police. She was on an M1 hold placed by Haleigh ELIAS. She presented to the emergency room psychotic. At the time of arrival to the emergency room, patient was rambling nonsensical words with pressured speech. The patient reported having used mushrooms in micro-dosing for several weeks. The patient was admitted involuntarily on an M1 hold due to being gravely disabled, due to her acute psychosis. The patient was admitted for safety crisis, stabilization, and medication management. ADMITTING DIAGNOSES: 1. 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 2. Alcohol use disorder, mild, in controlled environment. 3. Cannabis use disorder, severe, in controlled environment. 4. Substance-induced psychotic disorder. 5. Acute psychosis. ADMISSION PHYSICAL EXAM: Patient was seen on 10/25/2017, for medical consultation by Dr. Lopez. The patient was seen for medical clearance for inpatient Behavioral Health stay. Dr. Lopez noted he saw no medical contraindications to the patient's continued stay on the Inpatient Behavioral Health unit, nor to any psychiatric medications or procedures. For further details, please refer to the Internal Medicine consultation note by Dr. Lopez dated 10/25/2017. ADMISSION LABS: CBC revealed a low MCV at 78.3. There was no anemia, however, otherwise was overall within normal limits. Serum chemistry revealed a low carbon dioxide at 21, calcium was slightly high at 10.5, otherwise renal function and electrolytes were normal. test was negative. Toxicology screen in the serum was negative for ethyl alcohol and the urine was negative for any substances of abuse. Head CT showed sinusitis, but was otherwise without abnormalities. A1c was 5.5 on 10/25/2017. Lipid panel was within normal limits. HOSPITAL COURSE: The most prominent symptoms and behaviors while the patient was here were the following: Disorganized behavior, disorganized thought process. Target symptoms during the patient's stay were targeting symptoms of psychosis including disorganized behavior, disorganized thought process, tangential thought process, and anxiety. Treatment modalities utilized were as follows: Milieu and group therapy Zyprexa Zydis 10 mg p.o. b.i.d. was started to target psychotic symptoms. Medication was tolerated with no report of side effects and with good response. Gabapentin 300 mg p.o. t.i.d. was started to target anxiety symptoms. Medication was tolerated with no report of side effects and with good response. The patient has improved considerably with no signs of psychiatric symptoms and no psychiatric symptoms expressed. Patient reports she has improved since admission, states to be in stable condition, and feels safe to discharge today. The patient contracts for safety. The patient' s overall response to treatment was good. There were no adverse or unexpected results of treatment. The patient was safe throughout her stay, was engaged in her treatment, attended and engaged in groups and was appropriate with staff. The treatment team consensus is the patient is in stable condition and is safe to discharge. The patient, throughout the stay, verbalized to this interviewer , that she started acting strangely, bizarre behavior, and bizarre thoughts after she began micro dosing mushrooms and she agreed that this likely led to her psychosis that led to the crisis that ultimately led to her inpatient psychiatric stay. The patient responded well to Zyprexa for the psychotic symptoms and agrees to continue this medication under the management of an outpatient psychiatric provider. The patient's anxiety also improved considerably with gabapentin and she requested to continue this medication for anxiety. Patient states the behavior that led to her admission was likely due to her use of mushrooms, and patient states she plans to abstain from using illicit substances and alcohol. CONDITION AT DISCHARGE: Patient is in stable condition and is no longer a danger to self or others, and is not gravely disabled due to mental illness. Patient is no longer in need of inpatient level of care, and can be safely and effectively treated within the community. The patients level of risk at time of discharge is low based on the risk assessment below following this discharge summary. MSE: The patient is casually dressed and with good hygiene, and looks stated age. Patient is sitting, posture is upright, and position is relaxed. Patient appears awake, alert, and responds appropriately and reasonably during interview. Patient is engaged, relates well to interviewer, and emotional facial expression is appropriate to situation and changes appropriately with topic. Patient is cooperative, makes comfortable eye contact, and movements are voluntary, deliberate, coordinated, and smooth and even with no inappropriate movements. Patient makes laryngeal sounds effortlessly and shares conversation appropriately; pace of conversation is appropriate, and stream of talking is fluent; articulation is clear and understandable; word choice is effortless and appropriate for education level; completes sentences, occasionally pausing to think; rate and volume are appropriate for interview and setting. Patient reports mood as euthymic. Patients affect is stable with full variable range, congruent with mood, and appropriate to speech and circumstances. Patient has linear and logical thinking, with no loose associations, tangential thought, thought blocking, concrete thinking, or any other signs of formal thought disorder. Patient denies suicidal and homicidal ideation, and denies hallucinations and delusions. Patient appears to be a reliable historian with sound judgement and good insight into current condition. Patient has no apparent dysfunction in recent or remote memory noted , and no evidence of gross cognitive dysfunction noted at any point during the interview. DISCHARGE DIAGNOSES: 1. Hallucinogen abuse. 2. Substance-induced psychotic disorder. 3. Alcohol use disorder, mild. 4. Cannabis use disorder, severe. DISCHARGE MEDICATIONS: At the time of discharge patient requested to continue Zyprexa 10 mg po BID and Gabapentin 300 mg po TID. The patient was given 30 day prescriptions for Zyprexa 10 mg b.i.d., gabapentin 300 mg p.o. t.i.d. Prescriptions were reviewed with the patient for accuracy at time of discharge. DISPOSITION: The patient left hospital independently and voluntarily with her brother, and plans to return home with her brother, and live with her brother. FOLLOWUP CARE: community coordinator for high school reports the appropriate outpatient follow-up services have been established and outpatient appointments have been scheduled. The patient received written instructions with times and dates of outpatient follow-up appointments. The following follow-up recommendations were provided to the patient at discharge: Continue psychotropic medications as prescribed and attend appointments as scheduled. Report any side effects to a psychiatric outpatient provider, a primary care provider, or other health wound care center consultant. Address any questions or problems concerning the psychotropic medications with a psychiatric outpatient provider, a primary care provider, or other health wound care center consultant. Contact [facility] or [facility], or go to the nearest emergency room, if you are ever a danger to yourself/others, or unable to care for yourself. As soon as possible, establish a routine medication management treatment with a psychiatric provider, establish routine therapy appointments, and follow-up with a primary care provider. LEGAL COURSE: The patient was admitted on an M1 hold. The patient was placed on a short-term certification during her hospitalization. Patient discharged today independently and voluntarily. ATTITUDE AT TIME OF DISCHARGE: The patient's attitude was positive at time of discharge and patient reports she looks forward to discharging today. Patient reports she feels safe at discharge, is no longer a danger to herself or others , is in stable condition and contracts for safety. The patient states she will continue medications as prescribed and establish medication management treatment with an outpatient provider after discharge. The patient reports she understands the information provided to her and she understands, accepts, and agrees to psychotropic medications. Patient reports internal protective factors as the coping skills she has learned while hospitalized here, and she plans to continue to practice these coping skills after discharge. Patient reports external protective factors as her boyfriend. Patient describes looking forward to listening to music after discharge. Patient describes future plans as going to school, perhaps [employer] school, or nursing school. The patient reports she has completed her wellness plan and reviewed her wellness plan with her nurse. Patient reports her brother looks forward to her discharging today and he agrees with her plan to discharge from the hospital. This interviewer met with patient's brother and patient at time of her discharge at patient's request, and brother reports he plans to support patient in her ongoing treatment, and reports she is stable and safe to discharge with him today. PENDING LABS AND STUDIES: There were no pending labs and studies at time of discharge. ADVANCED DIRECTIVES: There were no advanced directives on file and patient was a full code during her hospitalization. The following psychotropic medication treatment informed consent and recommendations were provided to the patient at time of discharge. Patient reports she understands, accepts, and agrees to the information that has been provided. PSYCHOTROPIC MEDICATION TREATMENT INFORMED CONSENT and RECOMMENDATIONS: Review nature of condition, diagnosis, and prognosis. Review nature and purpose of psychotropic medication treatment. Review type of psychotropic medications being prescribed. Review risk and benefits of psychotropic medication treatment. Review probable length of time will need to take medications. Review risk and benefits of not undergoing psychotropic medication treatment. Review alternative treatments to psychotropic medications. Review psychotropic medications contraindications, side effects, and importance of reporting any side effects to a psychiatric provider, primary care provider, or other health wound care center consultant. Review importance of her asking a psychiatric provider or primary care provider any questions or problems concerning the psychotropic medications. Review importance of reporting to a psychiatric provider, primary care provider, or other health wound care center consultant if she plans to or becomes . Recommend patient abstain from using all illicit drugs, marijuana, and alcohol. Review safety plan and the importance to contact [facility] or [facility] , or go to the nearest emergency room, if ever a danger to yourself/others, or unable to care for yourself. Recommend upon discharge to establish routine medication management treatment with a psychiatric provider, establish routine therapy appointments, and follow-up with a primary care provider. Verify patient understands, accepts, and agrees to the information that has been provided. /[id number]
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
== END 2017-10-31 14:25 | disposition home or self-care (01) | DRG 897 ==
LOC: BBEH 10-25 12:00
PROVIDERS: ADMIT Registered Nurse; ATTEND Psychiatry & Neurology Psychiatry
DX: F16.159 Hallucinogen abuse with hallucinogen-induced psychotic disorder, unspecified (principal); F10.10 Alcohol abuse, uncomplicated; F12.20 Cannabis dependence, uncomplicated; E46 Unspecified protein-calorie malnutrition; J06.9 Acute upper respiratory infection, unspecified; F17.200 Nicotine dependence, unspecified, uncomplicated; Z68.20 Body mass index [BMI] 20.0-20.9, adult
CPT/HCPCS: 80305; G0480